=== PATIENT | male | born 1955 | race Caucasian/White ===

== ENCOUNTER 2017-06-12 14:59 | Emergency (ER) | payer BC ==
[2017-06-12 15:40] VITALS: BP 138/79; PULSE 98; RESP 14; TEMP 100; O2SAT 98
--- NOTE | 2017-06-12 16:17 | RADRPT ---
EXAM DATE/TIME: 06/12/2017 15:50 [place] COMPARISON: No previous studies available for comparison. INDICATIONS : Chest discomfort with slight fever. MEDICAL HISTORY : Hypertension. SURGICAL HISTORY : None. ENCOUNTER: Initial ACUITY: 2 days PAIN SCORE: 2/10 LOCATION: Bilateral chest FINDINGS: PA and lateral views of the chest demonstrate the lungs to be symmetrically aerated without evidence of mass, infiltrate or effusion. There is an azygous lobe the right upper lung. The cardiomediastina l contours are unremarkable. Osseous structures are intact. CONCLUSION: Normal examination for a patient of this age. Rito Chicas MD on June 12, 2017 at 16:16 Board Certified Radiologist. This report was verified electronically.
[2017-06-12 17:23] LABS: BASOPHIL % 0.2 % (0.0-2.0); HEMATOCRIT 41.1 % (39.0-51.0); HEMOGLOBIN 14.1 GM/DL (13.0-17.0); LYMPH % 13.8 % (9.0-44.0); LYMPHOCYTE # 1.3 TH/MM3 (1.0-4.8); MEAN CELL VOLUME 95.5 FL (80.0-100.0); MEAN CORPUSCULAR HEMOGLOBIN 32.8 PG (27.0-34.0); MEAN CORPUSCULAR HGB CONC 34.4 % (32.0-36.0); MEAN PLATELET VOLUME 10.1 FL (7.0-11.0); MONO % 12.9 % (0.0-8.0); MONOCYTE # 1.2 TH/MM3 (0-0.9); NEUT % 73.1 % (16.0-70.0); PLATELET COUNT 60 TH/MM3 (150-450); RED BLOOD COUNT 4.31 MIL/MM3 (4.50-5.90); RED CELL DISTRIBUTION WIDTH 13.6 % (11.6-17.2); WHITE BLOOD COUNT 9.5 TH/MM3 (4.0-11.0)
[2017-06-12 17:25] LABS: BILIRUBIN, URINE NEG (NEG); BLOOD, URINE NEG (NEG); GLUCOSE,URINE NEG (NEG); KETONE, URINE NEG (NEG); MUCUS URINE FEW /lpf (OCC); NITRITE,URINE NEG (NEG); SQUAMOUS EPITHELIAL CELL URINE <1 /hpf (0-5); URINE COLOR YELLOW (YELLW/STRAW); URINE LEUKOCYTE ESTERASE NEG (NEG)
[2017-06-12 17:40] LABS: PROTHROMBIN TIME - PATIENT 10.1 SEC (9.8-11.6)
[2017-06-12 17:48] LABS: BICARBONATE 29.4 MEQ/L (21.0-32.0); CREATININE 0.9 MG/DL (0.60-1.30); MAGNESIUM 1.9 MG/DL (1.5-2.5)
[2017-06-12 18:26] VITALS: BP 140/92; PULSE 87; RESP 17; TEMP 99.4; O2SAT 97
[2017-06-12] MEDS ORDERED: VIAG100T PO (18:26)
[2017-06-12] MEDS ORDERED: NEXI40CA PO (18:26)
[2017-06-12 18:38] LABS: ALBUMIN 3.2 GM/DL (3.4-5.0); DIRECT BILIRUBIN ADULT 0.3 MG/DL (0.0-0.2)
[2017-06-12 18:40] LABS: TOTAL BILIRUBIN ADULT 1.3 MG/DL (0.2-1.0); TOTAL PROTEIN 7.5 GM/DL (6.4-8.2)
--- NOTE | 2017-06-12 18:59 | PD ---
HPI Chief Complaint: General Weakness Time Seen by Provider: 18:40 Travel History International Travel<30 days: No Contact w/Intl Traveler<30days: No Traveled to known affect area: No History of Present Illness HPI 61-year-old male here for evaluation of dark yellow urine and generalized weakness. In triage it was noted that he has a low-grade fever. The patient denies cough or upper respiratory symptoms. No abdominal pain. No dysuria. States that he took sildenafil inside of his usual prescribed Viagra on Sunday and the symptoms started the day after that. He is concerned that this may be the culprit. He states he has been drinking plenty of water and Gatorade. PFSH Past Medical History Diminished Hearing: No Hypertension: Yes Kidney Stones: Yes Tetanus Vaccination: > 5 Years Influenza Vaccination: No ?: Not Social History Alcohol Use: Yes (EVERY FEW DAYS) Tobacco Use: No Substance Use: No Allergies-Medications (Allergen,Severity, Reaction): Coded Allergies: No Known Allergies (Unverified , 06/12/17) Reported Meds & Prescriptions Reported Meds & Active Scripts Active Reported Viagra (Sildenafil Citrate) 100 Mg Tab 100 Mg PO DAILY PRN Nexium (Esomeprazole DR) 40 Mg Capdr 40 Mg PO DAILY Review of Systems Except as stated in HPI: all other systems reviewed are Neg Physical Exam Narrative GENERAL: Well-developed, well-nourished, comfortable, no apparent distress. SKIN: Focused skin assessment warm/dry. No jaundice. HEAD: Atraumatic. Normocephalic. EYES: Pupils equal and round. No scleral icterus. No injection or drainage. ENT: Mucous membranes pink and dry. NECK: Trachea midline. No JVD. CARDIOVASCULAR: Regular rate and rhythm. RESPIRATORY: No accessory muscle use. Clear to auscultation. Breath sounds equal bilaterally. GASTROINTESTINAL: Abdomen soft, non-tender, nondistended. MUSCULOSKELETAL: No obvious deformities. No clubbing. No cyanosis. No edema. NEUROLOGICAL: Awake and alert. No obvious cranial nerve deficits. Motor grossly within normal limits. Normal speech. PSYCHIATRIC: Appropriate mood and affect; insight and judgment normal. Data Data Last Documented VS Vital Signs Date Time Temp Pulse Resp B/P (MAP) Pulse Ox O2 Delivery O2 Flow Rate FiO2 06/12/17 18:26 99.4 87 17 140/92 (108) 97 Room Air Orders Orders Electrocardiogram (3/6/18 15:42) Basic Metabolic Panel (Bmp) (06/12/17 15:42) Complete Blood Count With Diff (06/12/17 15:42) Magnesium (Mg) (06/12/17 15:42) Prothrombin Time / Inr (Pt) (06/12/17 15:42) Act Partial Throm Time (Ptt) (06/12/17 15:42) Chest, Pa & Lat (06/12/17 15:42) Urinalysis - C+S If Indicated (06/12/17 15:42) Creatine Kinase (Cpk) (06/12/17 15:42) Hepatic Functional Panel (06/12/17 17:50) Influenzae A/B Antigen (06/12/17 18:25) Sodium Chlor 0.9% 1000 Ml Inj (Ns 1000 M (06/12/17 19:00) Acetaminophen (Tylenol) (06/12/17 19:00) Labs Laboratory Tests Test 06/12/17 16:50 White Blood Count 9.5 TH/MM3 Red Blood Count 4.31 MIL/MM3 Hemoglobin 14.1 GM/DL Hematocrit 41.1 % Mean Corpuscular Volume 95.5 FL Mean Corpuscular Hemoglobin 32.8 PG Mean Corpuscular Hemoglobin Concent 34.4 % Red Cell Distribution Width 13.6 % Platelet Count 60 TH/MM3 Mean Platelet Volume 10.1 FL Neutrophils (%) (Auto) 73.1 % Lymphocytes (%) (Auto) 13.8 % Monocytes (%) (Auto) 12.9 % Eosinophils (%) (Auto) 0.0 % Basophils (%) (Auto) 0.2 % Neutrophils # (Auto) 7.0 TH/MM3 Lymphocytes # (Auto) 1.3 TH/MM3 Monocytes # (Auto) 1.2 TH/MM3 Eosinophils # (Auto) 0.0 TH/MM3 Basophils # (Auto) 0.0 TH/MM3 CBC Comment AUTO DIFF Differential Comment AUTO DIFF CONFIRMED Platelet Estimate LOW Platelet Morphology Comment ENLARGED Prothrombin Time 10.1 SEC Prothromb Time International Ratio 1.0 RATIO Activated Partial Thromboplast Time 30.1 SEC Urine Color YELLOW Urine Turbidity CLEAR Urine pH 6.0 Urine Specific [place] 1.016 Urine Protein 30 mg/dL Urine Glucose (UA) NEG mg/dL Urine Ketones NEG mg/dL Urine Occult Blood NEG Urine Nitrite NEG Urine Bilirubin NEG Urine Urobilinogen 4.0 MG/DL Urine Leukocyte Esterase NEG Urine RBC 1 /hpf Urine WBC 1 /hpf Urine Squamous Epithelial Cells <1 /hpf Urine Mucus FEW /lpf Microscopic Urinalysis Comment CULT NOT INDICATED Blood Urea Nitrogen 15 MG/DL Creatinine 0.90 MG/DL Random Glucose 102 MG/DL Calcium Level 9.0 MG/DL Magnesium Level 1.9 MG/DL Sodium Level 130 MEQ/L Potassium Level 3.8 MEQ/L Chloride Level 95 MEQ/L Carbon Dioxide Level 29.4 MEQ/L Anion Gap 6 MEQ/L Estimat Glomerular Filtration Rate 86 ML/MIN Total Bilirubin 1.3 MG/DL Direct Bilirubin 0.3 MG/DL Indirect Bilirubin 1.0 MG/DL Aspartate Amino Transf (AST/SGOT) 29 U/L Alanine Aminotransferase (ALT/SGPT) 46 U/L Alkaline Phosphatase 89 U/L Total Creatine Kinase 28 U/L Total Protein 7.5 GM/DL Albumin 3.2 GM/DL MDM Medical Decision Making Medical Screen Exam Complete: Yes Emergency Medical Condition: Yes Differential Diagnosis Dehydration, metabolic abnormality, hyperbilirubinemia, rhabdomyolysis Narrative Course Initial vital signs show heart rate 98, blood pressure 138/70, pulse ox 90% on room air, oral temp of 100F. CBC is remarkable for platelet 60. The patient reports history of thrombocytopenia which has been worked up in [place]. CMP is remarkable for sodium 130, chloride 95, otherwise unremarkable. T bili is 1.3. LFTs are normal. Total CK is 28. UA shows 30 protein, 4 urobilinogen, few mucus, not suggestive of UTI. Influenza is negative. The patient was given a liter of normal saline IV. He is overall very well- appearing and comfortable appearing. There are no significant physical exam findings. This may be an early viral process. At this point he is stable for discharge home with outpatient follow-up with a primary care physician this week. He was advised on when to return to the emergency department. He verbalizes understanding and agreement with plan. Diagnosis Primary Impression: Generalized weakness Additional Impressions: Hyponatremia Thrombocytopenia Referrals: Primary Care Physician 3 days Additional Instructions: Follow-up with a primary care physician this week. Stay hydrated with plenty of fluids. Return to the emergency department for worsening symptoms or any other concerns. Disposition: 01 DISCHARGE HOME Condition: Stable Robb Godoy MD Jun 12, 2017 18:59
[2017-06-12] MEDS ORDERED: SODIUM CHLOR 0.9% 1000 ML INJ 1,000 ML IV ONE (19:00)
[2017-06-12] MEDS ORDERED: ACETAMINOPHEN 325 MG TAB PO ONE (19:00)
--- NOTE | 2017-06-13 14:15 | EKG ---
Date Performed: 06/12/2017 Time Performed: 16:41:30 PTAGE: 61 years EKG: Sinus rhythm NORMAL ECG NO PREVIOUS TRACING DOCTOR: Brent Batres Interpretating Date/Time 06/13/2017 14:13:08
== END 2017-06-12 22:11 | disposition home or self-care (01) ==
LOC: NEPD 14:59
DX: R53.1 Weakness (principal); E87.1 Hypo-osmolality and hyponatremia; D69.6 Thrombocytopenia, unspecified; Z79.899 Other long term (current) drug therapy
CPT/HCPCS: 71046; 80048; 80076; 81001; 82550; 83735; 85025; 85610; 85730; 87804; 93005; 99285; J7030